=== PATIENT | female | born 1960 | race Caucasian/White ===

== ENCOUNTER 2021-02-10 12:04 | Observation (INO) ==
[2021-02-10 12:57] LABS: Basophils # 0.1 K/mcL (0.0-0.2); Basophils % 0.7 %; Eosinophils # 0.2 K/mcL (0.0-0.6); Eosinophils % 2.3 %; Hematocrit 39.9 % (35.3-44.9); Hemoglobin 12.8 g/dL (11.5-15.4); Immature Granulocytes % 0.1 % (0-4); Lymphocytes % 27.2 %; Mean Corpuscular HGB Conc 32.1 g/dL (31.6-35.5); Mean Corpuscular Hemoglobin 30.5 pg (28.0-33.3); Mean Platelet Volume 10.1 fL (9.4-12.4); Monocytes # 0.4 K/mcL (0.0-1.3); Neutrophils # 4.7 K/mcL (1.6-8.9); Platelet Count 240 K/mcL (140-400); Segmented Neutrophils % 63.7 %; White Blood Count 7.3 K/mcL (4.3-11.1)
[2021-02-10 13:14] LABS: BUN/Creatinine Ratio 19 (6-26); Blood Urea Nitrogen 17 mg/dL (6-20); Calcium 9.1 mg/dL (8.6-10.3); Carbon Dioxide 25 mEq/L (23-29); Chloride 107 mEq/L (98-107); Glucose 94 mg/dL (70-105); Osmolality,Calculated 289 (280-300); Potassium 4.4 mEq/L (3.5-5.1); Sodium 139 mEq/L (136-145); Troponin I < 0.03 ng/mL (< 0.04); eGFR For African Americans > 60 (> 60); eGFR For Non-African Americans > 60 (> 60)
[2021-02-10 16:46] LABS: Influenza A PCR Negative (Negative); Influenza B PCR Negative (Negative); Resp. Syncytial Virus PCR Negative (Negative); SARS-CoV-2 by PCR (In House) Negative (Negative)
[2021-02-10] MEDS ORDERED: Perflutren Lipid Microsphere 1.3 ML in 0.9 % Sodium Chloride 8.7 ML IVP PRN (17:01)
[2021-02-10] MEDS ORDERED: Acetaminophen 325 MG TABLET PO PRN (17:01)
[2021-02-10] MEDS ORDERED: Naloxone 0.4 MG/ML INJ IVP PRN (17:01)
[2021-02-10] MEDS ORDERED: Albuterol 2.5 MG/3 ML NEBULIZER IH PRN (17:22)
[2021-02-10] MEDS ORDERED: predniSONE 20 MG TABLET PO SCH (17:30)
[2021-02-10 17:58] LABS: Troponin I < 0.03 ng/mL (< 0.04)
[2021-02-10] MEDS ORDERED: *HR* Heparin 5,000 UNIT/ML VIAL SQ SCH (18:00)
[2021-02-10 18:11] LABS: Thyroid Stimulating Hormone 13.819 mcIU/mL (0.340-5.600)
[2021-02-10 18:52] LABS: Bilirubin,Urine Negative (Negative); Blood,Urine Negative (Negative); Clarity,Urine Clear (Clear); Color,Urine Light-Yellow (Yellow); Glucose,Urine (UA) Normal (Normal); Ketones,Urine Negative (Negative); Leukocyte Esterase,Urine Trace (Negative); Mucus,Urine Few per lpf (None-Few); Nitrite,Urine Negative (Negative); Protein,Urine Negative (Neg-Trace); RBC,Urine 0-3 per hpf (0-3); Specific Gravity,Urine 1.023 (1.010-1.025); Squamous Epithelial Cell,Urine Moderate per hpf (None-Few); Urobilinogen,Urine Normal (Normal); WBC,Urine 0-3 per hpf (0-3)
[2021-02-10] MEDS ORDERED: Sacubitril/Valsartan 49/51 MG 1 TABLET PO SCH (21:00)
[2021-02-10] MEDS ORDERED: Melatonin 3 MG TABLET PO PRN (21:00)
[2021-02-10] MEDS ORDERED: Apixaban 5 MG TABLET PO SCH (21:00)
[2021-02-10] MEDS: Albuterol 2.5 MG/3 ML NEBULIZER IH SCH ×2 (21:04→23:53)
[2021-02-11 01:08] LABS: Basophils % 0.2 %; Hematocrit 38.9 % (35.3-44.9); Hemoglobin 12.6 g/dL (11.5-15.4); Immature Granulocytes % 0.2 % (0-4); Lymphocytes # 0.8 K/mcL (0.6-4.6); Lymphocytes % 9.3 %; Mean Corpuscular HGB Conc 32.4 g/dL (31.6-35.5); Mean Corpuscular Volume 95.8 fL (83.0-100.0); Mean Platelet Volume 10.4 fL (9.4-12.4); Monocytes # 0.1 K/mcL (0.0-1.3); Monocytes % 1.2 %; Neutrophils # 7.4 K/mcL (1.6-8.9); Platelet Count 202 K/mcL (140-400); Red Blood Count 4.06 M/mcL (3.82-4.97); Red Cell Distribution Width 12.9 % (11.5-14.5); Segmented Neutrophils % 89.1 %; White Blood Count 8.3 K/mcL (4.3-11.1)
[2021-02-11 01:29] LABS: Alanine Aminotransferase 9 Units/L (7-52); Albumin 3.9 g/dL (3.5-5.7); Albumin/Globulin Ratio 1.5 (1.1-2.2); Alkaline Phosphatase 44 Units/L (34-104); Aspartate Amino Transferase 14 Units/L (13-39); BUN/Creatinine Ratio 15 (6-26); Bilirubin,Total 0.3 mg/dL (0.3-1.0); Blood Urea Nitrogen 16 mg/dL (6-20); Carbon Dioxide 22 mEq/L (23-29); Chloride 106 mEq/L (98-107); Globulin 2.6 g/dL (2.4-3.5); Glucose 211 mg/dL (70-105); Osmolality,Calculated 293 (280-300); Potassium 3.5 mEq/L (3.5-5.1); Sodium 138 mEq/L (136-145); Total Protein 6.5 g/dL (6.4-8.9); eGFR For African Americans > 60 (> 60); eGFR For Non-African Americans 54 (> 60)
[2021-02-11] MEDS: Albuterol 2.5 MG/3 ML NEBULIZER IH SCH ×3 (03:36→11:03)
[2021-02-11 06:47] VITALS: TEMP 97.8
[2021-02-11 08:10] LABS: Troponin I < 0.03 ng/mL (< 0.04)
[2021-02-11] MEDS ORDERED: Gadolinium Contrast Agent (WT Based) IV PRN (08:15)
[2021-02-11] MEDS ORDERED: Furosemide 40 MG TABLET PO SCH (09:00)
[2021-02-11 10:56] VITALS: BP 110/55; PULSE 56
[2021-02-11 11:05] VITALS: O2SAT 95
== END 2021-02-11 13:06 | disposition home or self-care (01) ==
LOC: EMEROOARM 12:04 → 3BNU 12:04 → SUATTDRO 19:37 → 3BNU 20:12
PROVIDERS: ADMIT Family Medicine; ATTEND Nurse Practitioner